=== PATIENT | female | born 2000 | race African-American/Black ===

== ENCOUNTER 2021-08-03 15:49 | Emergency (ER) | payer MEDICAID ==
[~2021-08-03] VITALS: Ht 170.2 cm; Wt 113.2 kg
[2021-08-03 18:27] LABS: BASOPHILS % (AUTO) 0.5 % (0-1); EOSINOPHILS # (AUTO) 0.3 X10'3 (0-0.9); EOSINOPHILS % (AUTO) 4.5 % (0-6); HEMATOCRIT 39.5 % (35.0-45.0); HEMOGLOBIN 12.8 g/dl (12.0-16.0); LYMPHOCYTES # (AUTO) 1.3 X10'3 (1.1-4.8); LYMPHOCYTES % (AUTO) 23.7 % (21-51); MEAN CORPUSCULAR HEMOGLOBIN 28.2 PG (27.0-31.0); MEAN CORPUSCULAR HGB CONC 32.5 g/dL (33.0-36.5); MEAN CORPUSCULAR VOLUME 86.8 FL (78-98); MEAN PLATELET VOLUME 9.9 FL (7.4-10.4); MONOCYTES # (AUTO) 0.4 X10'3 (0-0.9); MONOCYTES % (AUTO) 6.8 % (2-12); NEUTROPHILS # (AUTO) 3.6 X10'3 (1.8-7.7); NEUTROPHILS % (AUTO) 64.5 % (42-75); PLATELET COUNT 207 X10'3 (140-440); RED BLOOD COUNT 4.55 X10'6 (4.20-5.60); RED CELL DISTRIBUTION WIDTH 13.8 % (11.5-14.5); WHITE BLOOD COUNT 5.6 X10'3 (4.5-11.0)
[2021-08-03 18:28] LABS: ALANINE AMINOTRANSFERASE 25 U/L (12-78); ALBUMIN 3.5 G/DL (3.4-5.0); ALBUMIN/GLOBULIN RATIO 0.8 (1.1-1.5); ALKALINE PHOSPHATASE 84 IU/L (46-116); ANION GAP 7 (8-16); ASPARTATE AMINO TRANSFERASE 21 U/L (10-37); BILIRUBIN,TOTAL 0.2 MG/DL (0.1-1.0); BLOOD UREA NITROGEN 15 MG/DL (7-18); BUN/CREATININE RATIO 19.5 (6.6-38.0); CALCIUM 8.8 MG/DL (8.5-10.1); CHLORIDE 105 MMOL/L (99-107); CREATININE 0.77 MG/DL (0.40-0.90); GLUCOSE 86 MG/DL (70-104); LIPASE 70 U/L (73-393); SODIUM 139 MMOL/L (135-145); TOTAL PROTEIN 7.9 G/DL (6.4-8.2); eGFR > 90 ML/MIN
[2021-08-03 18:34] LABS: POTASSIUM 3.9 MMOL/L (3.5-5.1)
[2021-08-03 18:38] VITALS: BP 129/77
[2021-08-03 19:07] LABS: URINE HCG NEGATIVE (NEG)
[2021-08-03 19:16] LABS: CLARITY,URINE CLEAR (Clear); COLOR,URINE YELLOW (Yellow); GLUCOSE, URINE NEGATIVE (Neg); KETONES,URINE NEGATIVE (Neg); LEUKOCYTE ESTERASE ,URINE NEGATIVE (Neg); NITRITES, URINE NEGATIVE (Neg); OCCULT BLOOD,URINE SMALL (Neg); PROTEIN,URINE NEGATIVE (Neg); UROBILINOGEN,URINE 0.2 E.U/dL (0.2-1.0)
[2021-08-03 19:17] LABS: UA COLLECTION TYPE CLN CATCH MIDSTREAM
[2021-08-03] MEDS ORDERED: DICY10CA88 PO (19:28)
[2021-08-03] MEDS ORDERED: dicyclomine 10 MG capsule PO ONE (19:30)
[2021-08-03 19:36] LABS: BACTERIA,URINE 3+ /HPF (Neg); RBC,URINE 0-2 /HPF (0-2); WBC,URINE 0-4 /HPF (0-4)
[2021-08-03 19:37] LABS: MUCUS STRANDS MODERATE /LPF (Neg); SQUAMOUS EPITHELIAL CELL,UR MANY /LPF (FEW)
== END 2021-08-03 21:27 | disposition home or self-care (01) ==
LOC: ER 15:50
DX: R10.12 Left upper quadrant pain (principal); N93.9 Abnormal uterine and vaginal bleeding, unspecified; Z79.899 Other long term (current) drug therapy
CPT/HCPCS: 36415; 76700; 80053; 81001; 81025; 83690; 85025; 99284